=== PATIENT | female | born 1965 | race African-American/Black ===

== ENCOUNTER 2016-10-02 09:16 | Emergency (ER) | payer MEDICAID, OTHER ==
[~2016-10-02] VITALS: Ht 167.6 cm; Wt 83.9 kg
[~2016-10-02 09:16] MED LIST: CIPROFLOXACIN500 M2 ORAL; HYDROCHLOROTHIA25 MG ORAL; IBUPROFEN600 MG ORAL; LISINOPRIL20 MG ORAL; PAXIL10 MG ORAL; VISTARIL10 MG ORAL; ZOFRAN ODT4 MG ORAL
[2016-10-02 10:00] VITALS: BP 113/78
[2016-10-02 10:09] LABS: APPEARANCE,URINE CLEAR; KETONES,URINE NEGATIVE (NEGATIVE); LEUKOCYTE ESTERASE ,URINE 1+ (NEGATIVE); PH,URINE 5 (4.5-8.0); PROTEIN,URINE NEGATIVE (NEGATIVE); UROBILINOGEN,URINE 4 MG/DL (0.0-1.0)
[2016-10-02 10:22] LABS: NITRITE,URINE NEGATIVE (NEGATIVE)
[2016-10-02 10:23] LABS: BACTERIA,URINE FEW /HPF; ICTOTEST NEGATIVE; SQUAMOUS EPITHELIAL CELL,UR FEW /LPF (NONE/OCC)
[2016-10-02] MEDS ORDERED: PHENAZOPYRIDIN100 MG ORAL (10:34)
[2016-10-02] MEDS ORDERED: METROGEL-VAGINA70 G1 VAGIN (10:34)
[2016-10-02] MEDS ORDERED: NITROFURANTOIN100 M2 ORAL (10:34)
[2016-10-02 10:40] VITALS: BP 113/78
--- NOTE | 2016-10-03 09:23 | Emergency Room Report ---
History of Present Illness General Chief Complaint: Female Urogenital Problems Source: Patient Present Illness HPI Patient present with complaints of hurting with urination Patient reports that she had taken some [id number] medicine Which did help somewhat however has not fully resolved the problem Patient also had noticed some itching in the vaginal area and mild discharge Patient reports that she is not sexually active after not being sexually active for several years denies any other pelvic pain denies any fevers or chills Denies any vomiting or diarrhea denies any chest pain or shortness of breath patient's last evaluation was over a year and a half ago Allergies: Coded Allergies: No Known Allergies (Unverified , 07/01/15) Patient History Past Medical History: see triage record Pertinent Family History: none Now: No Reviewed Nursing Documentation: PMH: Agreed, PSxH: Agreed Nursing Documentation-PMH Hx Cardiac Problems: No Hx Hypertension: Yes Hx Pacemaker: No Hx Asthma: No Hx COPD: No Hx Diabetes: No Hx Cancer: No Hx Gastrointestinal Problems: No Hx Dialysis: No Hx Neurological Problems: No Hx Cerebrovascular Accident: No Hx Seizures: No Review of Systems All Other Systems: negative except mentioned in HPI Physical Exam Vital Signs Date Time Temp Pulse Resp B/P Pulse Ox O2 Delivery O2 Flow Rate FiO2 10/02/16 09:34 98.1 92 16 113/78 98 Room Air Sp02 EP Interpretation: reviewed, normal General Appearance: well appearing, no apparent distress Head: normocephalic, atraumatic Eyes: bilateral eye EOMI, bilateral eye PERRL ENT: hearing grossly normal, normal pharynx, TMs + canals normal, uvula midline Neck: full range of motion, supple, no meningismus, no bony tend Respiratory: lungs clear, normal breath sounds, no rhonchi, no respiratory distress, no retraction, no accessory muscle use Cardiovascular #1: normal peripheral pulses, regular rate, rhythm, no edema, no gallop, no JVD, no murmur Gastrointestinal: normal bowel sounds, non tender, soft, no mass, no organomegaly, non-distended, no guarding, no hernia, no pulsatile mass, no rebound Genitourinary: no CVA tenderness Musculoskeletal: normal inspection Neurologic: oriented x3, responsive, groutman III-XII nml as tested, motor strength/ tone normal, sensory intact Psychiatric: mood/affect normal Skin: normal color, no rash, warm/dry, palpation normal Lymphatic: normal inspection, no adenopathy Medical Decision Making Diagnostic Impression: Primary Impression: uti Additional Impression: vaginitis ER Course The patient's urine sample did show evidence of bacteria given the clinical exam and the history pelvic exam was not further performed and patient is treated critically Patient requires appropriate gynecologic followup with appropriate Pap smear and further followup Patient otherwise does not appear septic consideration for PID is low, Labs Test 10/02/16 09:30 Urine Color [place] Urine Appearance Clear Urine pH 5 (4.5-8.0) Urine Specific [place] 1.010 (1.005-1.035) Urine Protein Negative (NEGATIVE) Urine Glucose (UA) Negative (NEGATIVE) Urine Ketones Negative (NEGATIVE) Urine Occult Blood 3+ (NEGATIVE) Urine Nitrite Negative (NEGATIVE) Urine Bilirubin 2+ (NEGATIVE) Urine Ictotest Negative Urine Urobilinogen 4 MG/DL (0.0-1.0) Urine Leukocyte Esterase 1+ (NEGATIVE) Urine RBC 2-4 /HPF (0 - 2) Urine WBC 10-15 /HPF (0 - 2) Urine Squamous Epithelial Cells Few /LPF (NONE/OCC) Urine Bacteria Few /HPF (NONE) Urine HCG, Qualitative Negative Last Vital Signs Date Time Temp Pulse Resp B/P Pulse Ox O2 Delivery O2 Flow Rate FiO2 10/02/16 10:40 98.1 92 16 113/78 98 Room Air Status: unchanged Disposition: HOME, SELF-CARE Condition: Stable Scripts Phenazopyridine Hcl* (PYRIDIUM*) 100 Mg Tablet 100 MG ORAL BID, #15 TAB Prov: MIGUEL SAHU.OLuan 10/02/16 Metronidazole* (METROGEL-VAGINAL*) 70 Gm Gel.w.appl 1 APPL VAGIN BEDTIME for 7 Days, GM Prov: MIGUEL SAHU.O. 10/02/16 Nitrofurantoin Monohyd/M-Cryst* (MACROBID 100 MG*) 100 Mg Capsule 100 MG ORAL EVERY 12 HOURS for 7 Days, CAP Prov: MIGUEL SAHU.O. 10/02/16 Referrals: NOT CHOSEN [facility]/MD,REFERRING (PCP) Patient Instructions: Urinary Tract Infection, Vaginitis Additional Instructions: Patient is provided with the discharge instructions notified to follow up with primary doctor in the next 2-3 days otherwise return to the er with any worsening symptoms. Please note that this report is being documented using [employer] technology. This can lead to erroneous entry secondary to incorrect interpretation by the dictating instrument. MIGUEL SAHU D.O. October 03, 2016 09:23
== END 2016-10-02 11:10 | disposition home or self-care (01) ==
LOC: EMR 10:39
DX: N39.0 Urinary tract infection, site not specified (principal); N76.0 Acute vaginitis; I10 Essential (primary) hypertension
CPT/HCPCS: 81003; 81025; 87086; 99284

== ENCOUNTER 2016-10-15 23:27 | Emergency (ER) | payer MEDICAID ==
[~2016-10-15] VITALS: Ht 165.1 cm; Wt 90.7 kg
[~2016-10-15 23:27] MED LIST changes: +METROGEL-VAGINA70 G1 VAGIN; +NITROFURANTOIN100 M2 ORAL; +PHENAZOPYRIDIN100 MG ORAL
[2016-10-16 00:42] LABS: APPEARANCE,URINE SLIGHTLY CLOUDY; KETONES,URINE NEGATIVE (NEGATIVE); LEUKOCYTE ESTERASE ,URINE 2+ (NEGATIVE); NITRITE,URINE POSITIVE (NEGATIVE); PH,URINE 7 (4.5-8.0); PROTEIN,URINE 2+ (NEGATIVE); UROBILINOGEN,URINE 4 MG/DL (0.0-1.0)
[2016-10-16 00:49] LABS: BACTERIA,URINE MANY /HPF; RBC,URINE TNTC /HPF (0 - 2); SQUAMOUS EPITHELIAL CELL,UR FEW /LPF (NONE/OCC); WBC,URINE TNTC /HPF (0 - 2)
[2016-10-16 00:54] LABS: ICTOTEST NEGATIVE
[2016-10-16] MEDS ORDERED: cefTRIAXone 1 GM in NS 55 ML IVPB ONE (01:00)
[2016-10-16] MEDS ORDERED: KEFLEX500 MG ORAL (01:23)
--- NOTE | 2016-10-16 01:24 | Emergency Room Report ---
History of Present Illness General Chief Complaint: Female Urogenital Problems Source: Patient Present Illness HPI Is a 51-year-old female with no significant past medical history. She was here about a couple weeks ago for with UTI symptoms. Was treated Macrobid. It appeared to get better about a week but came back again in the last couple days. She has urinary frequency and urgency. Also with dysuria. She has a discharge and very itchiness. No fever or chills. She is sexually active with a new partner. No history of STDs. Allergies: Coded Allergies: No Known Allergies (Unverified , 07/01/15) Patient History Past Medical History: see triage record, old chart reviewed Past Surgical History: other Pertinent Family History: none Social History: Denies: smoking Last Menstrual Period: A WEEK AGO Now: No Immunizations: other Reviewed Nursing Documentation: PMH: Agreed, PSxH: Agreed Nursing Documentation-PMH Past Medical History: No Stated History Hx Cardiac Problems: No Hx Hypertension: Yes Hx Pacemaker: No Hx Asthma: No Hx COPD: No Hx Diabetes: No Hx Cancer: No Hx Dialysis: No Hx Neurological Problems: No Hx Cerebrovascular Accident: No Hx Seizures: No Review of Systems Eye: Denies: blurred vision, eye pain ENT: Denies: ear pain, nose congestion, throat swelling Respiratory: Denies: cough, shortness of breath Cardiovascular: Denies: chest pain, palpitations Gastrointestinal: Denies: abdominal pain, diarrhea, nausea, vomiting Genitourinary: Reports: discharge, dysuria, frequency Musculoskeletal: Denies: back pain, joint pain Skin: Denies: rash Neurological: Denies: headache, numbness Endocrine: Denies: increased thirst, increased urine Hematologic/Lymphatic: Denies: easy bruising All Other Systems: negative except mentioned in HPI Physical Exam Vital Signs Date Time Temp Pulse Resp B/P Pulse Ox O2 Delivery O2 Flow Rate FiO2 10/15/16 23:52 98.1 84 18 113/79 97 Room Air vitals normal. Sp02 EP Interpretation: reviewed, normal General Appearance: well appearing, no apparent distress, alert Head: normocephalic, atraumatic Eyes: bilateral eye EOMI, bilateral eye PERRL ENT: hearing grossly normal, normal pharynx Neck: full range of motion, supple, no meningismus Respiratory: chest non-tender, lungs clear, normal breath sounds Cardiovascular #1: regular rate, rhythm, no murmur Gastrointestinal: normal bowel sounds, non tender, no mass, no organomegaly, no bruit, non-distended Genitourinary: other - pelvic done with female RN as lookback coordinator. normal external exam. internal exam showed yellowish d/c. no cmt. no adnexal mass. Musculoskeletal: back normal, gait/station normal, normal range of motion Neurologic: alert, oriented x3 Psychiatric: mood/affect normal Skin: warm/dry Medical Decision Making Diagnostic Impression: Primary Impression: UTI (urinary tract infection) Qualified Codes: N30.00 - Acute cystitis without hematuria Additional Impression: Trichomonal vaginitis ER Course Patient presents with symptom of UTI. She also has trichomonal vaginitis. No evidence of systemic spread. Notice of pyelonephritis. We'll discharge home with recommendation for outpatient STD testing. Also have partner treated. Last Vital Signs Date Time Temp Pulse Resp B/P Pulse Ox O2 Delivery O2 Flow Rate FiO2 10/15/16 23:52 98.1 84 18 113/79 97 Room Air Status: improved Disposition: HOME, SELF-CARE Condition: Stable Scripts Cephalexin* (KEFLEX*) 500 Mg Capsule 500 MG ORAL TID, #21 CAP 0 Refills Prov: FRANKY MCKINNON M.D. 10/16/16 Referrals: NOT CHOSEN [facility]/,REFERRING (PCP) Patient Instructions: Urinary Tract Infection Additional Instructions: Followup your Dr. in 7 days. Recommend outpatient testing for HIV, hepatitis, syphilis, and other STDs. This can be done anonymously. Return if symptom worsen. Have your partner treated also. FRANKY MCKINNON M.D. October 16, 2016 01:24
[2016-10-16] MEDS ORDERED: metroNIDAZOLE 500mg tab ORAL ONE (01:30)
[2016-10-16 01:45] VITALS: BP 137/93
== END 2016-10-16 01:45 | disposition home or self-care (01) ==
LOC: EMR 10-16 00:52
DX: N30.00 Acute cystitis without hematuria (principal); A59.01 Trichomonal vulvovaginitis; I10 Essential (primary) hypertension
CPT/HCPCS: 81003; 87086; 87181; 87210; 96360; 99284; J0696